=== PATIENT | female | born 1945 | race Hispanic/Latino ===

== ENCOUNTER 2021-05-27 17:41 | Emergency (ER) | payer SELFPAY ==
[~2021-05-27] VITALS: Ht 142.2 cm; Wt 63.0 kg
[2021-05-27 17:46] VITALS: BP 147/55
== END 2021-05-27 18:45 | disposition left against medical advice (07) ==
LOC: EDH 17:41
DX: I10 Essential (primary) hypertension (principal); Z53.21 Procedure and treatment not carried out due to patient leaving prior to being seen by health care provider